=== PATIENT | female | born 1960 | race Caucasian/White ===

== ENCOUNTER → 2020-07-30 08:12 | Outpatient (CLI) | payer BC, SELFPAY ==
[2020-07-30 09:09] LABS: Add Manual Diff / Slide Review NO; Basophils Absolute Auto 0 /uL (0-100); Basophils Percent Auto 0.8 % (0-2); Eosinophils Absolute Auto 100 /uL (0-450); Eosinophils Percent Auto 3.4 % (2-4); Hematocrit 37.9 % (36-46); Hemoglobin 12.9 g/dL (12.0-16.0); Lymphocytes Absolute Auto 1200 /uL (1100-4500); Lymphocytes Percent Auto 32.5 % (25-40); Mean Corpuscular HGB Conc 34.1 % (30-36); Mean Corpuscular Volume 90.8 fL (80-100); Monocytes Absolute Auto 400 /uL (0-900); Monocytes Percent Auto 10.7 % (3-14); Neutrophils Absolute Auto 1900 /uL (1500-7000); Neutrophils Percent Auto 52.6 % (50-75); Platelet Count 163 X10^3/uL (150-400); Red Blood Cell Count 4.18 X10^6/uL (4.0-5.2); Red Cell Distribution Width 13.2 % (11.6-14.8); White Blood Cell Count 3.6 X10^3/uL (4.5-11.0)
[2020-07-30 09:30] LABS: Alanine Aminotransferase 50 IU/L (<35); Albumin 4.4 g/dL (3.5-5.0); Albumin Globulin Ratio 1.8 (1.0-2.8); Alkaline Phosphatase 65 U/L (38-126); Aspartate Aminotransferase 46 IU/L (14-36); BUN Creatinine Ratio 18.2 (6-22); Bilirubin Total 0.9 mg/dL (0.2-1.3); Blood Urea Nitrogen 14 mg/dL (7-17); Calcium 9.2 mg/dL (8.4-10.2); Carbon Dioxide 32 mmol/L (22-32); Chloride 104 mmol/L (98-107); Cholesterol 172 mg/dL (140-199); Estimated Glomerular Filt Rate > 60.0 mL/min (>60); Globulin 2.5 g/dL (1.7-4.1); Glucose 102 mg/dL (80-110); HDL Cholesterol 80 mg/dL (40-60); LDL Cholesterol Calculated 80 mg/dL (<100); Potassium 3.7 mmol/L (3.4-5.1); Sodium 139 mmol/L (137-145); Total Protein 6.9 g/dL (6.3-8.2); Triglycerides 61 mg/dL (35-150)
[2020-07-30 10:27] LABS: Thyroid Stimulating Hormone 3.12 uIU/mL (0.47-4.68)
[2020-07-31 14:23] LABS: Gamma Glutamyl Transpeptidase 37 U/L (12-43); HEMOLYSIS 25 (0-50)
[2020-07-31 14:59] LABS: Ferritin 97 ng/mL (11-264)
[2020-07-31 18:40] LABS: ANA Screen, IFA Positive (.)
[2020-08-01 14:36] LABS: Albumin 4.3 g/dL (2.9-4.4); Alpha-1-Globulin 0.3 g/dL (0.0-0.4); Alpha-2-Globulin 0.6 g/dL (0.4-1.0); Gamma Globulin 0.5 g/dL (0.4-1.8); Globulin Total 2.2 g/dL (2.2-3.9); Immunoglobulin A, Serum 148 mg/dL (87-352); Immunoglobulin G,Serum 510 mg/dL (586-1602); Immunoglobulin M, Serum 81 mg/dL (26-217); Protein, Total 6.5 g/dL (6.0-8.5)
== END ==
PROVIDERS: PCP Internal Medicine; Referring Provider Internal Medicine; Visit Provider Internal Medicine
DX: G62.9 Polyneuropathy, unspecified (principal); E78.5 Hyperlipidemia, unspecified; D72.819 Decreased white blood cell count, unspecified
CPT/HCPCS: 36415; 80053; 80061; 82728; 82784; 82977; 84155; 84165; 84443; 85025; 86038; 86334

== ENCOUNTER → 2020-09-06 13:34 | Outpatient (CLI) | payer BC, SELFPAY | PROVIDERS: PCP Internal Medicine; Referring Provider Internal Medicine; Visit Provider Internal Medicine | DX: G62.9 Polyneuropathy, unspecified (principal) | CPT/HCPCS: 36415; 82175; 83655 ==

== ENCOUNTER → 2020-10-05 12:17 | Outpatient (CLI) | payer BC, SELFPAY ==
--- NOTE | 2020-10-05 | DI.MG.S_ITS ---
BILATERAL DIGITAL SCREENING MAMMOGRAM 3D/2D WITH CAD: 10/05/2020 CLINICAL: Routine screening. Family history of breast cancer. Comparison is made to exams dated: 07/02/2017 mammogram, 08/07/2018 mammogram - outside location, and 09/16/2019 mammogram - [facility]. The tissue of both breasts is heterogeneously dense. This may lower the sensitivity of mammography. Current study was also evaluated with a Computer Aided Detection (CAD) system. No significant masses, calcifications, or other findings are seen in either breast. There has been no significant interval change. IMPRESSION: NEGATIVE There is no mammographic evidence of malignancy. A 1 year screening mammogram is recommended. This exam was interpreted at Station ID: [id number]. NOTE: For mammograms, a report in lay terms will be sent to the patient. Approximately 15% of breast malignancies will not be visualized mammographically. In the management of a palpable breast mass, a negative mammogram must not discourage biopsy of a clinically suspicious lesion. Electronically Signed By: Bhupendra campbell/kusum:10/05/2020 12:49:31 letter sent: Normal Exam ACR BI-RADS Category 1: Negative 3341F
== END ==
PROVIDERS: PCP Internal Medicine; Referring Provider Internal Medicine; Visit Provider Internal Medicine
DX: Z12.31 Encounter for screening mammogram for malignant neoplasm of breast (principal); Z80.3 Family history of malignant neoplasm of breast
CPT/HCPCS: 77063; 77067

== ENCOUNTER → 2020-11-30 12:03 | Outpatient (CLI) | payer BC, SELFPAY ==
[2020-11-30] MEDS: COVID-19 VACC #1, MRNA(MOD) 100 MCG/0.5 ML VIAL IM (12:08)
== END ==
PROVIDERS: PCP Internal Medicine; Visit Provider Internal Medicine
DX: Z23 Encounter for immunization (principal)
CPT/HCPCS: 0011A; 91301

== ENCOUNTER → 2020-12-28 11:59 | Outpatient (CLI) | payer BC, SELFPAY ==
[2020-12-28] MEDS: COVID-19 VACC #2, MRNA(MOD) 100 MCG/0.5 ML VIAL IM (12:10)
== END ==
PROVIDERS: PCP Internal Medicine; Visit Provider Internal Medicine
DX: Z23 Encounter for immunization (principal)
CPT/HCPCS: 0012A; 91301

== ENCOUNTER 2021-03-11 13:22 | Outpatient (RCR) | payer BC, SELFPAY ==
--- NOTE | 2021-03-11 17:38 | PT.OIE ---
Current Diagnoses Benign paroxysmal vertigo, right ear (03/11/21) Benign paroxysmal vertigo, bilateral (03/11/21) Dizziness and giddiness (03/11/21) Visit Care Team Role Provider Type Myrtle Briseno PA-C Attending Provider Non-Staff Family Provider Primary Care Provider Referring Provider Specialty: Internal Medicine Address: [address] [place] [address], [facility] Email: [email or web address] Physical Therapy Initial Evaluation PT-OP-A Visit Information Start: 03/11/21 16:33 Freq: Status: Active Protocol: Document 03/11/21 13:45 DCW (Rec: 03/11/21 16:34 DCW [id number]) Out-Patient Physical Therapy Visit Information Visit Information Visit Type Initial Evaluation Visit Start Time 13:45 Visit Stop Time 14:30 Total Visit Minutes 45 Visit Number 1 Number of LEAD CARE MANAGER Visits 0 Evaluation Information Evaluation Date 03/11/21 PT-OP-B Current Condition Start: 03/11/21 16:33 Freq: Status: Active Protocol: Document 03/11/21 13:45 DCW (Rec: 03/11/21 16:42 DCW [id number]) Current Condition History of Current Condition Onset Date Early December Current Complaints Positional vertigo History of Current Condition Pt is a 60 year old female complaining of a two month history of motion-induced vertigo. Pt reports episodes last a few seconds. Symptoms are provoked by looking up, leaning forward, and lying back in bed. Pt does have a history of BPPV ~3 years ago which responded well to canalith repositioning maneuvers. Pt denies recent hearing changes, tinnitus, diplopia, dysarthria, discoordination, or decreased mentation/consciousness. Pt reports symptoms are waxing/ waning in nature. Pt denies hx of HTN, diabetes, arrhythmia, head trauma, seizure, migraines, back/neck problems, CVA, anxiety/panic disorders, depression, or excessive smoking or drinking. Treatment Goals Patient/Caregiver Goals Eliminate vertigo PT-OP-C Subjective Start: 03/11/21 16:33 Freq: Status: Active Protocol: Document 03/11/21 13:45 DCW (Rec: 03/11/21 16:42 DCW [id number]) OP-PT Subjective Patient Comments Patient Comments It's not as bad as it was last time I had this. Patient Reported Progress Same Patient Questionnaires Dizziness Handicap Inventory DHI Score 24% DHI Functional Impairment 20 to 39% Impaired (Score 20- 39) PT-OP-O Vestibular Start: 03/11/21 16:33 Freq: Status: Active Protocol: Document 03/11/21 13:45 DCW (Rec: 03/11/21 16:42 DCW [id number]) Vestibular Assessment Screening Tests Vestibular Artery Screen Negative Visual Testing Smooth Pursuits Horizontal WNL Smooth Pursuits Vertical WNL Saccades Horizontal WNL Heave Test Negative Thrust Head Negative Positional Testing Madison-Hallpike Positive Right,Negative Left, Upbeating,< 60 Seconds PT-OP-Q Treatments Start: 03/11/21 16:33 Freq: Status: Active Protocol: Document 03/11/21 13:45 DCW (Rec: 03/11/21 16:42 DCW [id number]) Canalithic Repositioning BPPV Treatment Lukasz Affected Canal(s) Posterior R Reps x3 PT-OP-T Assessment and Plan Start: 03/11/21 16:33 Freq: Status: Active Protocol: Document 03/11/21 13:45 DCW (Rec: 03/11/21 17:37 DCW [id number]) Physical Therapy Assessment Rehab Potential Rehabilitation Potential Good Evaluation Complexity Number of Personal Factors/Comorbidities 0 Number of Body Systems Impaired 1-2 Clinical Presentation at Evaluation Unstable Impairments Impairments Balance,Functional Activities, Functional Mobility,Vestibular Goals Three Impairment Positive right Madison-Hallpike test Supply Tech Goal (LTG) Pt to present with negative positional testing bilaterally . LTG Duration 05/12/21 Two Impairment Pt experiences vertigo with positional changes Short Term Goal (STG) Pt to present with no instances of positional vertigo to improve ability to perform bed mobility. STG Duration 04/11/21 One Impairment Pt scores a 25% handicap on the DHI Short Term Goal (STG) Pt to score <15% on the DHI STG Duration 04/11/21 Assessment Summary Assessment During right Madison-Hallpike test , pt complained of vertigo and demonstrated up-beating, torsional nystagmus lasting approximately 15 seconds, consistent with diagnosis of right-sided posterior canal BPPV, canalithiasis-type. Pt was treated with a left/right- sided modified Lukasz maneuver. Pt complained of symptoms in the first and third position, which is normally indicative of a successful treatment. Upon sitting up, pt experienced a reversal, with nystagmus and instability for ~10 seconds. A second Hallpike confirmed continued presence of loose otoconia, and a second modified Lukasz was performed. Once again, pt experienced a reversal upon sitting. Strangely, however, further testing was negative. One possible explanation is that the second reversal was not a true reversal, and was in fact the otoconia returning to the utricle upon sitting. Pt was educated on BPPV, expectations for treatment, possible recurrence (BPPV has a ~50% recurrence rate in the five years following treatment ), and post-Lukasz restrictions . Pt to return in ~1 week for a follow-up appointment, and intermittently afterward as indicated for treatment of BPPV. Physical Therapy Plan Frequency and Duration Frequency of Treatment 1-2 x/wk Duration of Treatment Two months Plan of Care Start Date 03/11/21 Plan of Care End Date 05/12/21 Therapeutic Interventions Therapeutic Interventions Canalithic Repositioning, Neuromuscular Re-education, Patient/Caregiver Education, Self-Care/Home Management, Therapeutic Exercises, Vestibular Rehabilitation Next Visit Focus/Plan Next Note Type Treatment Note Next Visit Plan Positional testing, CRM as indicated
--- NOTE | 2021-03-11 17:38 | PT.OPPOC ---
Physical, Occupational & Speech Therapy At [facility] Current Diagnoses Benign paroxysmal vertigo, right ear (03/11/21) Benign paroxysmal vertigo, bilateral (03/11/21) Dizziness and giddiness (03/11/21) Visit Care Team Role Provider Type Myrtle Briseno PA-C Attending Provider Non-Staff Family Provider Primary Care Provider Referring Provider Specialty: Internal Medicine Address: [address] [place] [address], [id number] Email: [email or web address] Plan Of Care PT-OP-T Assessment and Plan Start: 03/11/21 16:33 Freq: Status: Active Protocol: Document 03/11/21 13:45 DCW (Rec: 03/11/21 17:37 DCW [id number]) Physical Therapy Assessment Rehab Potential Rehabilitation Potential Good Evaluation Complexity Number of Personal Factors/Comorbidities 0 Number of Body Systems Impaired 1-2 Clinical Presentation at Evaluation Unstable Impairments Impairments Balance,Functional Activities, Functional Mobility,Vestibular Goals Three Impairment Positive right Ludmila-Hallpike test Group Home Goal (LTG) Pt to present with negative positional testing bilaterally . LTG Duration 05/12/21 Two Impairment Pt experiences vertigo with positional changes Short Term Goal (STG) Pt to present with no instances of positional vertigo to improve ability to perform bed mobility. STG Duration 04/11/21 One Impairment Pt scores a 25% handicap on the DHI Short Term Goal (STG) Pt to score <15% on the DHI STG Duration 04/11/21 Assessment Summary Assessment During right Ludmila-Hallpike test , pt complained of vertigo and demonstrated up-beating, torsional nystagmus lasting approximately 15 seconds, consistent with diagnosis of right-sided posterior canal BPPV, canalithiasis-type. Pt was treated with a right- sided modified Lukasz maneuver. Pt complained of symptoms in the first and third position, which is normally indicative of a successful treatment. Upon sitting up, pt experienced a reversal, with nystagmus and instability for ~10 seconds. A second Hallpike confirmed continued presence of loose otoconia, and a second modified Lukasz was performed. Once again, pt experienced a reversal upon sitting. Strangely, however, further testing was negative. One possible explanation is that the second reversal was not a true reversal, and was in fact the otoconia returning to the utricle upon sitting. Pt was educated on BPPV, expectations for treatment, possible recurrence (BPPV has a ~50% recurrence rate in the five years following treatment ), and post-Lukasz restrictions . Pt to return in ~1 week for a follow-up appointment, and intermittently afterward as indicated for treatment of BPPV. Physical Therapy Plan Frequency and Duration Frequency of Treatment 1-2 x/wk Duration of Treatment Two months Plan of Care Start Date 03/11/21 Plan of Care End Date 05/12/21 Therapeutic Interventions Therapeutic Interventions Canalithic Repositioning, Neuromuscular Re-education, Patient/Caregiver Education, Self-Care/Home Management, Therapeutic Exercises, Vestibular Rehabilitation Next Visit Focus/Plan Next Note Type Treatment Note Next Visit Plan Positional testing, CRM as indicated Plan of Care Dates Plan of Care Start Date 03/11/21 Plan of Care End Date 05/12/21 Electronically Signed by: Cong Miranda, PT 03/11/21 [id number] Please Sign and Return: I have reviewed this Plan of Care and certify that the skilled therapy services above are required to meet the patient?s needs. Physician Signature Date Printed Name and Credentials Clinical Instructor Signature Printed Name and Credentials
--- NOTE | 2021-03-25 17:52 | PT.OPDS ---
Current Diagnoses Benign paroxysmal vertigo, right ear (03/11/21) Benign paroxysmal vertigo, bilateral (03/11/21) Dizziness and giddiness (03/11/21) Visit Care Team Role Provider Type Myrtle Briseno PA-C Attending Provider Non-Staff Family Provider Primary Care Provider Referring Provider Specialty: Internal Medicine Address: [address] [place] [address], [facility] Email: [email or web address] Visit Number Visit Number 1 Discharge Summary PT-OP-B Current Condition Start: 03/11/21 16:33 Freq: Status: Active Protocol: Document 03/11/21 13:45 DCW (Rec: 03/11/21 16:42 DCW [id number]) Current Condition History of Current Condition Onset Date Early December Current Complaints Positional vertigo History of Current Condition Pt is a 60 year old female complaining of a two month history of motion-induced vertigo. Pt reports episodes last a few seconds. Symptoms are provoked by looking up, leaning forward, and lying back in bed. Pt does have a hisroty of BPPV ~3 years ago which responded well to canalith repositioning maneuvers. Pt denies recent hearing changes, tinnitus, diplopia, dysarthria, discoordination, or decreased mentation/consciousness. Pt reports symptoms are waxing/ waning in nature. Pt denies hx of HTN, diabetes, arrhythmia, head trauma, seizure, migraines, back/neck problems, CVA, anxiety/panic disorders, depression, or excessive smoking or drinking. Treatment Goals Patient/Caregiver Goals Eliminate vertigo PT-OP-C Subjective Start: 03/11/21 16:33 Freq: Status: Active Protocol: Document 03/11/21 13:45 DCW (Rec: 03/11/21 16:42 DCW [id number]) OP-PT Subjective Patient Comments Patient Comments It's not as bad as it was last time I had this. Patient Reported Progress Same Patient Questionnaires Dizziness Handicap Inventory DHI Score 24% DHI Functional Impairment 20 to 39% Impaired (Score 20- 39) PT-OP-O Vestibular Start: 03/11/21 16:33 Freq: Status: Active Protocol: Document 03/11/21 13:45 DCW (Rec: 07/12/21 16:42 DC [id number]) Vestibular Assessment Screening Tests Vestibular Artery Screen Negative Visual Testing Smooth Pursuits Horizontal WNL Smooth Pursuits Vertical WNL Saccades Horizontal WNL Heave Test Negative Thrust Head Negative Positional Testing Ludmila-Hallpike Positive Right,Negative Left, Upbeating,< 60 Seconds PT-OP-T Assessment and Plan Start: 03/11/21 16:33 Freq: Status: Active Protocol: Document 03/25/21 17:50 DCW (Rec: 03/25/21 17:51 DC [id number]) Physical Therapy Assessment Assessment Summary Assessment Pt phoned clinic today to request discharge, reported she no longer needed therapy at this time. Pt will be discharged from skilled PT, will require a new referral in order to return. Physical Therapy Plan Frequency and Duration Frequency of Treatment 1-2 x/wk Duration of Treatment Two months Plan of Care Start Date 03/11/21 Plan of Care End Date 05/12/21 Therapeutic Interventions Therapeutic Interventions Canalithic Repositioning, Neuromuscular Re-education, Patient/Caregiver Education, Self-Care/Home Management, Therapeutic Exercises, Vestibular Rehabilitation Discharge Physical Therapy Discharge Reasons Patient Request Next Visit Focus/Plan Next Note Type Discharge Summary
== END 2021-03-26 10:15 | disposition home or self-care (01) ==
LOC: PHYS 13:22
PROVIDERS: Family Provider Physician Assistant; PCP Physician Assistant; Referring Provider Physician Assistant; Visit Provider Physician Assistant
DX: H81.13 Benign paroxysmal vertigo, bilateral (principal)
CPT/HCPCS: 95992; 97161

== ENCOUNTER → 2021-10-08 15:57 | Outpatient (CLI) | payer BC, SELFPAY ==
--- NOTE | 2021-10-08 | DI.MG.S_ITS ---
BILATERAL DIGITAL SCREENING MAMMOGRAM 3D/2D WITH CAD: 10/08/2021 CLINICAL: Routine screening. Family history of breast cancer. Comparison is made to exams dated: 10/05/2020 mammogram - [facility], 09/16/2019 mammogram - [facility], and 08/07/2018 mammogram - outside location. The tissue of both breasts is heterogeneously dense. This may lower the sensitivity of mammography. Current study was also evaluated with a Computer Aided Detection (CAD) system. No significant masses, calcifications, or other findings are seen in either breast. There has been no significant interval change. IMPRESSION: NEGATIVE There is no mammographic evidence of malignancy. A 1 year screening mammogram is recommended. This exam was interpreted at Station ID: [id number]. NOTE: For mammograms, a report in lay terms will be sent to the patient. Approximately 15% of breast malignancies will not be visualized mammographically. In the management of a palpable breast mass, a negative mammogram must not discourage biopsy of a clinically suspicious lesion. Electronically Signed By: Bhupendra campbell/kusum:10/09/2021 08:08:26 letter sent: Normal Exam ACR BI-RADS Category 1: Negative 3341F
== END ==
PROVIDERS: Family Provider Physician Assistant; PCP Physician Assistant; Referring Provider Physician Assistant; Visit Provider Physician Assistant
DX: Z12.31 Encounter for screening mammogram for malignant neoplasm of breast (principal); Z80.3 Family history of malignant neoplasm of breast
CPT/HCPCS: 77063; 77067

== ENCOUNTER → 2022-07-10 12:07 | Outpatient (CLI) | payer BC, SELFPAY | PROVIDERS: Family Provider Physician Assistant; PCP Physician Assistant; Referring Provider Physician Assistant; Visit Provider Physician Assistant | DX: Z13.820 Encounter for screening for osteoporosis; Z78.0 Asymptomatic menopausal state; Z92.23 Personal history of estrogen therapy | CPT/HCPCS: 77080 ==

== ENCOUNTER → 2022-08-04 15:21 | Outpatient (CLI) | payer BC, SELFPAY ==
[2022-08-05 15:24] LABS: HEMOLYSIS < 15 (0-50); Iron 108 ug/dL (37-170)
[2022-08-05 15:43] LABS: Percent Iron Saturation 40 % (15-50); Total Iron Binding Capacity 267 ug/dL (265-497); Transferrin 231 mg/dL (206-381)
[2022-08-05 16:46] LABS: Ferritin 124 ng/mL (11-264)
[2022-08-05 17:17] LABS: Folate > 20.0 ng/mL (2.76-20.0)
== END ==
PROVIDERS: Family Provider Physician Assistant; PCP Physician Assistant; Referring Provider Physician Assistant; Visit Provider Physician Assistant
DX: R79.89 Other specified abnormal findings of blood chemistry (principal)
CPT/HCPCS: 36415; 82728; 82746; 83540; 83550

== ENCOUNTER → 2023-01-09 15:16 | Outpatient (CLI) | payer BC, SELFPAY ==
--- NOTE | 2023-01-09 | DI.MG.S_ITS ---
BILATERAL DIGITAL SCREENING MAMMOGRAM 3D/2D WITH CAD: 01/09/2023 CLINICAL: Routine screening. Family history of breast cancer. Comparison is made to exams dated: 10/08/2021 mammogram, 10/05/2020 mammogram - [facility], and 09/16/2019 mammogram - [facility]. Both breasts are heterogeneously dense, which may obscure small masses (category c / 51-75% glandular tissue). Current study was also evaluated with a Computer Aided Detection (CAD) system. No significant masses, calcifications, or other findings are seen in either breast. There has been no significant interval change. IMPRESSION: NEGATIVE There is no mammographic evidence of malignancy. A 1 year screening mammogram is recommended. Based on the Tyrer Cuzick model (a risk assessment model) the patient's lifetime risk is 15.4% and her 10 year risk is 6.8%. According to the ACR, ACS, and NCCN guidelines, an annual breast MRI exam along with mammogram is recommended if the patient's lifetime risk is 20% or greater. This exam was interpreted at Station ID: [id number]. NOTE: For mammograms, a report in lay terms will be sent to the patient. Approximately 15% of breast malignancies will not be visualized mammographically. In the management of a palpable breast mass, a negative mammogram must not discourage biopsy of a clinically suspicious lesion. Electronically Signed By: Karen giron/kusum:01/09/2023 16:26:46 letter sent: Normal Exam ACR BI-RADS Category 1: Negative 3341F
== END ==
PROVIDERS: Family Provider Physician Assistant; PCP Physician Assistant; Referring Provider Physician Assistant; Visit Provider Physician Assistant
DX: Z12.31 Encounter for screening mammogram for malignant neoplasm of breast (principal); Z80.3 Family history of malignant neoplasm of breast
CPT/HCPCS: 77063; 77067

== ENCOUNTER → 2024-02-26 14:35 | Outpatient (CLI) | payer BC, SELFPAY ==
--- NOTE | 2024-02-26 14:36 | DI.MG.S_ITS ---
BILATERAL DIGITAL SCREENING MAMMOGRAM 3D/2D WITH CAD: 02/26/2024 CLINICAL: Routine screening. Family history of breast cancer. Comparison is made to exams dated: 01/09/2023 mammogram, 10/08/2021 mammogram, and 10/05/2020 mammogram - [facility]. Both breasts are heterogeneously dense, which may obscure small masses (category c / 51-75% glandular tissue). Current study was also evaluated with a Computer Aided Detection (CAD) system. No significant masses, calcifications, or other findings are seen in either breast. There has been no significant interval change. IMPRESSION: NEGATIVE There is no mammographic evidence of malignancy. A 1 year screening mammogram is recommended. Based on the Tyrer Cuzick model (a risk assessment model) the patient's lifetime risk is 15.0% and her 10 year risk is 6.9%. According to the ACR, ACS, and NCCN guidelines, an annual breast MRI exam along with mammogram is recommended if the patient's lifetime risk is 20% or greater. This exam was interpreted at Station ID: [id number]. NOTE: For mammograms, a report in lay terms will be sent to the patient. Approximately 15% of breast malignancies will not be visualized mammographically. In the management of a palpable breast mass, a negative mammogram must not discourage biopsy of a clinically suspicious lesion. Electronically Signed By: Vaughn patel/kusum:02/26/2024 16:30:45 letter sent: Normal Exam ACR BI-RADS Category 1: Negative 3341F
== END ==
PROVIDERS: Family Provider Physician Assistant; PCP Physician Assistant; Referring Provider Physician Assistant; Visit Provider Physician Assistant
DX: Z12.31 Encounter for screening mammogram for malignant neoplasm of breast (principal); R92.333 Mammographic heterogeneous density, bilateral breasts; Z80.3 Family history of malignant neoplasm of breast
CPT/HCPCS: 77063; 77067

== ENCOUNTER → 2025-03-24 14:27 | Outpatient (CLI) | payer MEDICARE, BC, SELFPAY ==
--- NOTE | 2025-03-24 14:29 | DI.MG.S_ITS ---
MM screening mammo BI: 03/24/2025. BI-RADS: 1 CLINICAL: 65-year old female for bilateral screening mammogram. Tyrer-Cuzick lifetime risk of 10.5%. No personal or first-degree family history of breast cancer. PRIOR EXAMS 02/26/2024, 01/09/2023, 10/08/2021, 10/05/2020. MAMMOGRAPHY TECHNIQUE: 2D and 3D (tomosynthesis) digital mammographic views obtained, with additional images as needed for full coverage. Current study was also evaluated with a Computer Aided Detection (CAD) system. DENSITY C. The breasts are heterogeneously dense, which may obscure small masses. MAMMOGRAPHY FINDINGS Bilateral: No suspicious mass, asymmetry, microcalcification, or other abnormality seen. IMPRESSION: * No evidence of malignancy. RECOMMENDATIONS Bilateral * Annual screening mammography. OVERALL ASSESSMENT CATEGORY BI-RADS-1: Negative. The [employer] recommends annual screening mammography beginning at age 40 for women with average risk of breast cancer. ELECTRONICALLY SIGNED: Ana Shen M.D. on 03/24/2025 at 05:01:02 PM PT Interpreting Station ID: [id number]
== END ==
PROVIDERS: Family Provider Physician Assistant; PCP Physician Assistant; Referring Provider Physician Assistant; Visit Provider Physician Assistant
DX: Z12.31 Encounter for screening mammogram for malignant neoplasm of breast (principal); R92.333 Mammographic heterogeneous density, bilateral breasts
CPT/HCPCS: 77063; 77067

== ENCOUNTER → 2025-07-04 14:09 | Outpatient (CLI) | payer MEDICARE, BC, SELFPAY ==
--- NOTE | 2025-07-04 14:13 | DI.RAD.S_ITS ---
PROCEDURE: ORTHO-XR FOOT 3V WB RIGHT
--- NOTE | 2025-07-04 14:13 | DI.RAD.S_ITS ---
PROCEDURE: ORTHO-XR FOOT 3V WB LEFT
== END ==
PROVIDERS: Family Provider Physician Assistant; PCP Physician Assistant; Referring Provider Physician Assistant; Visit Provider Podiatrist Foot & Ankle Surgery
DX: M20.12 Hallux valgus (acquired), left foot (principal); M20.11 Hallux valgus (acquired), right foot; M21.612 Bunion of left foot; M79.671 Pain in right foot; M79.672 Pain in left foot; M77.32 Calcaneal spur, left foot; M77.31 Calcaneal spur, right foot
CPT/HCPCS: 73630

== ENCOUNTER → 2025-07-14 14:10 | Outpatient (CLI) | payer MEDICARE, BC, SELFPAY ==
--- NOTE | 2025-07-14 14:22 | DI.RAD.S_ITS ---
PROCEDURE: XR CHEST 2V INDICATIONS: Pre Op TECHNIQUE: 2 views of the chest were acquired. COMPARISON: None. FINDINGS: Surgical changes and devices: None. Lungs and pleura: Lungs are clear. No pleural effusions or pneumothorax. Mediastinum: Mediastinal contours are normal. Heart size is normal. Bones and chest wall: S-shaped dextrolevocurvature of the thoracolumbar spine. No suspicious bony abnormalities. Soft tissues appear unremarkable. IMPRESSION: No acute cardiopulmonary abnormality is seen. Dictated by: Xander Gill M.D. on 07/16/2025 at 13:15 Approved by: Xander Gill M.D. on 07/16/2025 at 13:16
== END ==
LOC: RAD 14:17
PROVIDERS: Family Provider Physician Assistant; PCP Physician Assistant; Referring Provider Physician Assistant; Visit Provider Physician Assistant
DX: Z01.818 Encounter for other preprocedural examination (principal)
CPT/HCPCS: 71046

== ENCOUNTER 2025-07-18 14:37 | Emergency (ER) | payer MEDICARE, BC, SELFPAY ==
[2025-07-18] VITALS (25 sets, daily range): BP systolic 102–147; BP diastolic 55–84; PULSE 54–77; RESP 12–88; TEMP 36.6; O2SAT 90–100; BMI 21.9
--- NOTE | 2025-07-18 14:52 | DI.RAD.S_ITS ---
PROCEDURE: XR CHEST 1V INDICATIONS: Chest Pain TECHNIQUE: One view of the chest was acquired. COMPARISON: [facility], CR, XR CHEST 2V, 07/14/2025, 14:19. FINDINGS: Surgical changes and devices: None. Lungs and pleura: Lungs are clear. No pleural effusions or pneumothorax. Mediastinum: Mediastinal contours appear normal. Heart size is normal. Bones and chest wall: No suspicious bony lesions. Overlying soft tissues appear unremarkable. Scoliosis. Prominent nipple shadows. IMPRESSION: No acute cardiopulmonary abnormality is seen. Dictated by: Shmuel Mcdonnell M.D. on 07/18/2025 at 16:36 Approved by: Shmuel Mcdonnell M.D. on 07/18/2025 at 16:37
--- NOTE | 2025-07-18 14:52 | EKG_ITS ---
[place] [address] [address], [place] [address] Test Date: 2025-07-18 Pat Name: Zhane Edward Department: Room: Gender: Female Mines Inspector: QUINN : 1960 Requested By: Order Number: [id number] Reading MD: Ang Husain MD Measurements Intervals [place] Rate: 61 P: 65 NE: 150 QRS: 44 QRSD: 76 T: 47 QT: 394 QTc: 396 Interpretive Statements Normal sinus rhythm Electronically Signed On 07-18-2025 15:46:36 PST by Ang Husain MD
[2025-07-18] MEDS: ASPIRIN 81 MG CHEW TAB 324 MG PO (15:04)
[2025-07-18 15:10] LABS: INR 1.1 (0.9-1.3); Prothrombin Time 12.0 SECONDS (9.4-12.5)
[2025-07-18 15:13] LABS: PTT Partial Thromboplastin Tim 37 SECONDS (25.1-36.5)
[2025-07-18 15:17] LABS: Add Manual Diff / Slide Review NO; Hematocrit 37.8 % (36-46); Hemoglobin 13.3 g/dL (12.0-16.0); Lymphocytes Absolute Auto 700 /uL (1100-4500); Mean Corpuscular HGB Conc 35.3 % (30-36); Mean Corpuscular Hemoglobin 32.3 PG (26-34); Mean Corpuscular Volume 91.3 fL (80-100); Platelet Count 197 X10^3/uL (150-400)
[2025-07-18 15:18] LABS: Alanine Aminotransferase 26 IU/L (<35); Albumin 5.2 g/dL (3.5-5.0); Albumin Globulin Ratio 2.0 (1.0-2.8); Alkaline Phosphatase 71 U/L (38-126); Blood Urea Nitrogen 25 mg/dL (7-17); Calcium 9.7 mg/dL (8.4-10.2); Carbon Dioxide 25 mmol/L (22-32); Chloride 101 mmol/L (98-107); Creatine Kinase 86 U/L (30-135); Estimated Glomerular Filt Rate > 60 mL/min (>60); Globulin 2.6 g/dL (1.7-4.1); Glucose 121 mg/dL (70-99); HEMOLYSIS < 15 (0-50); Lipase 181 U/L (23-300); Magnesium 2.0 mg/dL (1.6-2.3); Potassium 4.2 mmol/L (3.4-5.1); Sodium 138 mmol/L (137-145); Total Protein 7.8 g/dL (6.3-8.2)
[2025-07-18 15:30] LABS: NT-proBNP (BNP-Adult 18+) 70 pg/mL (<125); Troponin I < 0.012 ng/mL (0.01-0.034)
--- NOTE | 2025-07-18 15:37 | ED_ITS ---
HPI - Chest Pain <Erika Wolf DO - Last Filed: 07/18/25 23:18> General Chief Complaint: Chest Pain Stated Complaint: dizzy, sweating, episode this AM, low HR Time Seen by Provider: 07/18/25 14:54 Source: patient, RN notes reviewed and old records reviewed Mode of arrival: Ambulatory Limitations: no limitations Limitations: no limitations Related Data Allergies Allergy/AdvReac Type Severity Reaction Status Date / Time amoxicillin Allergy Unknown Hives Verified 07/18/25 15:13 <Karin Zhou PA-C - Last Filed: 07/18/25 19:58> History of Present Illness HPI narrative: 65-year-old female with past medical history hyperlipidemia presents to the ED with 1 day of chest pain, diaphoresis, lightheadedness. Patient states that she was awoken from sleep at about 7:30 a.m. feeling some chest pain and diaphoretic. She was unable to go back to sleep after that so she awoke. Later on, she noticed that her much registered that she had had low heart rates between 35 and 40 at 7:33 a.m.. Since that time in the morning, patient has not had any symptoms. No fever, chills, shortness of breath, nausea, vomiting, syncope. No known cardiac history. Review of Systems <Karin Zhou PA-C - Last Filed: 07/18/25 19:58> Constitutional Constitutional: Denies chills, Denies fatigue, Denies fever(s), Denies frequent falls, Denies lethargy and Denies weakness Comments: diaphoresis Eyes Eyes: Denies change in vision, Denies eye discharge, Denies irritation and Denies loss of vision ENT Ears, Nose, Mouth, and Throat: Denies change in voice, Denies dizziness, Denies neck pain, Denies sore throat and Denies throat swelling Cardiovascular Cardiovascular: Reports chest pain, Denies irregular heart rhythm, Reports lightheadedness, Denies palpitations, Denies dyspnea, Denies dyspnea on exertion and Denies orthopnea Comments: bradycardia Respiratory Respiratory: Denies cough, Denies dyspnea, Denies dyspnea on exertion and Denies wheezing Gastrointestinal Gastrointestinal: Denies abdominal pain, Denies change in bowel habits, Denies diarrhea, Denies nausea and Denies vomiting Musculoskeletal Musculoskeletal: Denies neck pain and Denies numbness Integumentary/Breasts Skin/Breast: Denies pruritus, Denies erythema, Denies rash and Denies wounds Neurologic Neurologic: Denies behavioral changes, Denies confusion, Denies dizziness, Denies frequent falls, Denies loss of vision, Denies numbness and Denies weakness Psychiatric Psychiatric: Denies anxiety, Denies behavioral changes, Denies confusion, Denies depression, Denies homicidal ideation and Denies suicidal ideation Endocrine Endocrine: Denies fatigue, Denies flushing and Denies palpitations Hematologic/Lymphatic Hematologic/Lymphatic: Denies easy bruising Allergic/Immunologic Allergic/Immunologic: Denies urticaria, Denies throat swelling and Denies wheezing Patient History <Erika Wolf DO - Last Filed: 07/18/25 23:18> Social History Smoking Status: Never smoker Smoking Status: Never smoker Exam <Erika Wolf DO - Last Filed: 07/18/25 23:18> Initial Vital Signs Initial Vital Signs: Vital Signs Pulse Rate 77 07/18/25 14:45 Blood Pressure 131/73 07/18/25 14:45 Pulse Oximetry 100 07/18/25 14:45 <Karin Zhou PA-C - Last Filed: 07/18/25 19:58> Narrative Exam Narrative: Const General:?cooperative, healthy appearing and comfortable [facility] Head:?normal to inspection Ears:?hearing grossly normal bilaterally Nose:?external nose normal Face and sinus:?normal facial exam and sinuses nontender Mouth:?oral mucosae normal Throat:?posterior oropharynx normal Eyes General:?appearance normal, both eyes and all related structures Neck Neck:?normal visual inspection and no lymphadenopathy noted Resp Effort & Inspection:?normal respiratory effort Auscultation:?clear to auscultation bilaterally Cardio Rate:?regular rate Rhythm:?regular rhythm Neuro General:?patient alert, patient awake and patient oriented x3 Initial Vital Signs Initial Vital Signs: Vital Signs Pulse Rate 77 07/18/25 14:45 Blood Pressure 131/73 07/18/25 14:45 Pulse Oximetry 100 07/18/25 14:45 Course <Erika Wolf DO - Last Filed: 07/18/25 23:18> Orders Ordered: ED Orders 07/18/25 14:52 XR chest 1V Stat EKG-12 Lead Stat 07/18/25 14:55 Complete Blood Count AUTO DIFF Stat Comprehensive Metabolic Panel Stat Lipase Stat Magnesium Stat NT-proBNP (BNP-Adult 18+) Stat PTT Partial Thromboplastin Melvin Stat Prothrombin Time INR Stat Troponin & CK Cardiac Panel Stat 07/18/25 18:10 EKG-12 Lead Stat 07/18/25 18:55 Troponin & CK Cardiac Panel Stat Discontinued Medications Aspirin (Aspirin 81 Mg Chew Tab) 324 mg PO NOW ONE Stop: 07/18/25 14:53 Last Admin: 07/18/25 15:04 Dose: 324 mg Documented By: GENTRY Vital Signs Vital signs: Vital Signs - 8 hr 07/18/25 15:30 07/18/25 15:30 07/18/25 15:45 Pulse Rate 62 63 Respiratory Rate 24 20 Blood Pressure 123/66 Pulse Oximetry 99 100 Oxygen Delivery Method 07/18/25 15:45 07/18/25 16:00 07/18/25 16:00 Pulse Rate 61 Respiratory Rate 12 Blood Pressure 135/67 125/65 Pulse Oximetry 100 Oxygen Delivery Method 07/18/25 16:15 07/18/25 16:15 07/18/25 16:30 Pulse Rate 64 61 Respiratory Rate 24 14 Blood Pressure 123/58 L Pulse Oximetry 100 100 Oxygen Delivery Method 07/18/25 16:30 07/18/25 16:45 07/18/25 16:45 Pulse Rate 63 Respiratory Rate 14 Blood Pressure 122/63 114/58 L Pulse Oximetry 100 Oxygen Delivery Method 07/18/25 17:12 07/18/25 17:15 07/18/25 17:15 Pulse Rate 62 58 L Respiratory Rate 88 H 15 Blood Pressure 114/60 Pulse Oximetry 90 L 99 Oxygen Delivery Method 07/18/25 17:30 07/18/25 17:30 07/18/25 17:45 Pulse Rate 61 Respiratory Rate 16 Blood Pressure 116/57 L 109/57 L Pulse Oximetry 100 Oxygen Delivery Method 07/18/25 17:45 07/18/25 18:00 07/18/25 18:00 Pulse Rate 61 61 Respiratory Rate 26 H 23 Blood Pressure 113/60 Pulse Oximetry 100 99 Oxygen Delivery Method 07/18/25 18:15 07/18/25 18:15 07/18/25 18:30 Pulse Rate 61 59 L Respiratory Rate Blood Pressure 116/58 L Pulse Oximetry 98 100 Oxygen Delivery Method 07/18/25 18:31 07/18/25 18:31 07/18/25 18:45 Pulse Rate 60 Respiratory Rate Blood Pressure 129/62 131/76 Pulse Oximetry 98 Oxygen Delivery Method 07/18/25 18:45 07/18/25 19:00 07/18/25 19:00 Pulse Rate 66 58 L Respiratory Rate 20 22 Blood Pressure 119/57 L Pulse Oximetry 99 99 Oxygen Delivery Method Room Air 07/18/25 19:15 07/18/25 19:15 07/18/25 19:30 Pulse Rate 59 L 58 L Respiratory Rate Blood Pressure 111/59 L Pulse Oximetry 98 98 Oxygen Delivery Method 07/18/25 19:30 07/18/25 19:45 07/18/25 19:45 Pulse Rate 58 L Respiratory Rate 23 Blood Pressure 102/55 L 105/56 L Pulse Oximetry 99 Oxygen Delivery Method <Karin Zhou PA-C - Last Filed: 07/18/25 19:58> Orders Ordered: ED Orders 07/18/25 14:52 XR chest 1V Stat EKG-12 Lead Stat 07/18/25 14:55 Complete Blood Count AUTO DIFF Stat Comprehensive Metabolic Panel Stat Lipase Stat Magnesium Stat NT-proBNP (BNP-Adult 18+) Stat PTT Partial Thromboplastin Melvin Stat Prothrombin Time INR Stat Troponin & CK Cardiac Panel Stat 07/18/25 18:10 EKG-12 Lead Stat 07/18/25 18:55 Troponin & CK Cardiac Panel Stat Discontinued Medications Aspirin (Aspirin 81 Mg Chew Tab) 324 mg PO NOW ONE Stop: 07/18/25 14:53 Last Admin: 07/18/25 15:04 Dose: 324 mg Documented By: GENTRY Vital Signs Vital signs: Vital Signs - 8 hr 07/18/25 15:30 07/18/25 15:30 07/18/25 15:45 Pulse Rate 62 63 Respiratory Rate 24 20 Blood Pressure 123/66 Pulse Oximetry 99 100 Oxygen Delivery Method 07/18/25 15:45 07/18/25 16:00 07/18/25 16:00 Pulse Rate 61 Respiratory Rate 12 Blood Pressure 135/67 125/65 Pulse Oximetry 100 Oxygen Delivery Method 07/18/25 16:15 07/18/25 16:15 07/18/25 16:30 Pulse Rate 64 61 Respiratory Rate 24 14 Blood Pressure 123/58 L Pulse Oximetry 100 100 Oxygen Delivery Method 07/18/25 16:30 07/18/25 16:45 07/18/25 16:45 Pulse Rate 63 Respiratory Rate 14 Blood Pressure 122/63 114/58 L Pulse Oximetry 100 Oxygen Delivery Method 07/18/25 17:12 07/18/25 17:15 07/18/25 17:15 Pulse Rate 62 58 L Respiratory Rate 88 H 15 Blood Pressure 114/60 Pulse Oximetry 90 L 99 Oxygen Delivery Method 07/18/25 17:30 07/18/25 17:30 07/18/25 17:45 Pulse Rate 61 Respiratory Rate 16 Blood Pressure 116/57 L 109/57 L Pulse Oximetry 100 Oxygen Delivery Method 07/18/25 17:45 07/18/25 18:00 07/18/25 18:00 Pulse Rate 61 61 Respiratory Rate 26 H 23 Blood Pressure 113/60 Pulse Oximetry 100 99 Oxygen Delivery Method 07/18/25 18:15 07/18/25 18:15 07/18/25 18:30 Pulse Rate 61 59 L Respiratory Rate Blood Pressure 116/58 L Pulse Oximetry 98 100 Oxygen Delivery Method 07/18/25 18:31 07/18/25 18:31 07/18/25 18:45 Pulse Rate 60 Respiratory Rate Blood Pressure 129/62 131/76 Pulse Oximetry 98 Oxygen Delivery Method 07/18/25 18:45 07/18/25 19:00 07/18/25 19:00 Pulse Rate 66 58 L Respiratory Rate 20 22 Blood Pressure 119/57 L Pulse Oximetry 99 99 Oxygen Delivery Method Room Air 07/18/25 19:15 07/18/25 19:15 07/18/25 19:30 Pulse Rate 59 L 58 L Respiratory Rate Blood Pressure 111/59 L Pulse Oximetry 98 98 Oxygen Delivery Method 07/18/25 19:30 07/18/25 19:45 07/18/25 19:45 Pulse Rate 58 L Respiratory Rate 23 Blood Pressure 102/55 L 105/56 L Pulse Oximetry 99 Oxygen Delivery Method MDM - Chest Pain <Erika Wolf, - Last Filed: 07/18/25 23:18> Lab Data 07/18/25 14:55 07/18/25 14:55 Labs: Lab Results 07/18/25 07/18/25 Range/Units 14:55 18:55 WBC 4.6 (4.5-11.0) X10^3/uL RBC 4.14 (4.0-5.2) X10^6/uL Hgb 13.3 (12.0-16.0) g/dL Hct 37.8 (36-46) % MCV 91.3 (80-100) fL MCH 32.3 (26-34) PG MCHC 35.3 (30-36) % RDW 12.6 (11.6-14.8) % Plt Count 197 (150-400) X10^3/uL Neut % (Auto) 75.3 H (50-75) % Lymph % (Auto) 15.7 L (25-40) % [place] % (Auto) 7.6 (3-14) % Eos % (Auto) 0.2 L (2-4) % Baso % (Auto) 1.2 (0-2) % Neut # (Auto) 3400 (5524-1276) /uL Lymph # (Auto) 700 L (2050-8639) /uL [place] # (Auto) 300 (0-900) /uL Eos # (Auto) 0 (0-450) /uL Baso # (Auto) 100 (0-100) /uL PT 12.0 (9.4-12.5) SECONDS INR 1.1 (0.9-1.3) APTT 37 H (25.1-36.5) SECONDS Sodium 138 (137-145) mmol/L Potassium 4.2 (3.4-5.1) mmol/L Chloride 101 (98-107) mmol/L Carbon Dioxide 25 (22-32) mmol/L BUN 25 H (7-17) mg/dL Creatinine 0.83 (0.52-1.04) mg/dL Estimated GFR > 60 (>60) mL/min BUN/Creatinine Ratio 30.1 H (6-22) Glucose 121 H (70-99) mg/dL Calcium 9.7 (8.4-10.2) mg/dL Magnesium 2.0 (1.6-2.3) mg/dL Total Bilirubin 0.7 (0.2-1.3) mg/dL AST 34 (14-36) IU/L ALT 26 (<35) IU/L Alkaline Phosphatase 71 (38-126) U/L Total Creatine Kinase 86 73 (30-135) U/L Troponin I < 0.012 < 0.012 (0.01-0.034) ng/mL NT-Pro-B Natriuret Pep 70 (<125) pg/mL Total Protein 7.8 (6.3-8.2) g/dL Albumin 5.2 H (3.5-5.0) g/dL Globulin 2.6 (1.7-4.1) g/dL Albumin/Globulin Ratio 2.0 (1.0-2.8) Lipase 181 (23-300) U/L [facility] Narrative Medical decision making narrative: Labs show normal white count, hemoglobin and platelets, predominance of neutrophils, INR is 1.1, BUN is 25 creatinine 0.83 electrolytes are otherwise appropriate glucose is 121 LFTs are normal, troponins less than 0.012 with a BNP of 70. Lipase is 181. Chest x-ray shows no acute cardiopulmonary abnormality seen as shaped dextro levocurvature of the thoracolumbar spine no suspicious bony abnormality soft tissues appear unremarkable. EKG, sinus rhythm rate of 61 NC 150 QRS is 76 QTC of [address]-elevation or depression. Patient received aspirin <Karin Zhou PA-C - Last Filed: 07/18/25 19:58> Lab Data Labs: Lab Results 07/18/25 07/18/25 Range/Units 14:55 18:55 WBC 4.6 (4.5-11.0) X10^3/uL RBC 4.14 (4.0-5.2) X10^6/uL Hgb 13.3 (12.0-16.0) g/dL Hct 37.8 (36-46) % MCV 91.3 (80-100) fL MCH 32.3 (26-34) PG MCHC 35.3 (30-36) % RDW 12.6 (11.6-14.8) % Plt Count 197 (150-400) X10^3/uL Neut % (Auto) 75.3 H (50-75) % Lymph % (Auto) 15.7 L (25-40) % [place] % (Auto) 7.6 (3-14) % Eos % (Auto) 0.2 L (2-4) % Baso % (Auto) 1.2 (0-2) % Neut # (Auto) 3400 (7564-2808) /uL Lymph # (Auto) 700 L (9042-7309) /uL [place] # (Auto) 300 (0-900) /uL Eos # (Auto) 0 (0-450) /uL Baso # (Auto) 100 (0-100) /uL PT 12.0 (9.4-12.5) SECONDS INR 1.1 (0.9-1.3) APTT 37 H (25.1-36.5) SECONDS Sodium 138 (137-145) mmol/L Potassium 4.2 (3.4-5.1) mmol/L Chloride 101 (98-107) mmol/L Carbon Dioxide 25 (22-32) mmol/L BUN 25 H (7-17) mg/dL Creatinine 0.83 (0.52-1.04) mg/dL Estimated GFR > 60 (>60) mL/min BUN/Creatinine Ratio 30.1 H (6-22) Glucose 121 H (70-99) mg/dL Calcium 9.7 (8.4-10.2) mg/dL Magnesium 2.0 (1.6-2.3) mg/dL Total Bilirubin 0.7 (0.2-1.3) mg/dL AST 34 (14-36) IU/L ALT 26 (<35) IU/L Alkaline Phosphatase 71 (38-126) U/L Total Creatine Kinase 86 73 (30-135) U/L Troponin I < 0.012 < 0.012 (0.01-0.034) ng/mL NT-Pro-B Natriuret Pep 70 (<125) pg/mL Total Protein 7.8 (6.3-8.2) g/dL Albumin 5.2 H (3.5-5.0) g/dL Globulin 2.6 (1.7-4.1) g/dL Albumin/Globulin Ratio 2.0 (1.0-2.8) Lipase 181 (23-300) U/L [facility] Narrative Medical decision making narrative: 65-year-old female with past medical history hyperlipidemia presents to the ED with 1 day of chest pain, diaphoresis, lightheadedness. Cardiopulmonary workup was obtained. Labs show normal white count, hemoglobin and platelets, predominance of neutrophils, INR is 1.1, BUN is 25 creatinine 0.83 electrolytes are otherwise appropriate glucose is 121 LFTs are normal, troponins less than 0.012 with a BNP of 70. Lipase is 181. Chest x-ray shows no acute cardiopulmonary abnormality seen as shaped dextro levocurvature of the thoracolumbar spine no suspicious bony abnormality soft tissues appear unremarkable. EKG, sinus rhythm rate of 61 NC 150 QRS is 76 QTC of [address]-elevation or depression. Patient received aspirin Patient continued to stay stable without symptoms in the ED. repeat EKG was performed with a ventricular rate of 55 beats per minute, sinus bradycardia. NC interval of 130, QRS 80 milliseconds, QTC of 409. No acute ST-T changes. Will repeat troponin, reassess. Repeat troponin within normal limits. Counseled patient on possible reasons for bradycardia, chest pain. Recommend getting evaluated by her PCP for sleep apnea and thyroid issues etc. recommend follow-up with cardiology for further evaluation. ED return precautions discussed with patient. Patient verbalized understanding. Medical records reviewed: Yes Discharge Plan Departure Patient Disposition: Home Clinical Impression: Chest pain Qualifiers: Chest pain type: unspecified Qualified Code(s): R07.9 - Chest pain, unspecified Instructions: DI for Chest Pain Activity Restrictions/Additional Instructions: You were evaluated in the emergency department today for chest pain, low heart rate. Your chest x-ray, EKG and labs were normal. The repeat EKG and troponin were also normal. While it is unclear the reason why you experienced the chest pain and low heart rate this morning, it is important for you to follow-up with cardiology for further investigation. Common causes of a low heart rate could be sleep apnea, heart blocks, new medications, thyroid issues. It is therefore important for you to follow-up with both cardiology and your primary care doctor for further investigations. In the meanwhile, if your symptoms worsen please return to the ED. Referrals: Rocio Mckeon PA-C [Primary Care Provider, Medical] Stand Alone Forms: Patient Portal/API ED Sign-out <Erika Wolf DO - Last Filed: 07/18/25 23:18> Cosign ED Attending Cosignature Attestation: When level
--- NOTE | 2025-07-18 18:10 | EKG_ITS ---
[facility] [address] [address] Test Date: 2025-07-18 Pat Name: Zhane Edward Department: [facility] Room: Gender: Female Production Administrator: boris : 1960 Requested By: Order Number: [id number] Reading MD: Ang Husain MD Measurements Intervals [place] Rate: 55 P: 33 TN: 130 QRS: 42 QRSD: 80 T: 45 QT: 428 QTc: 409 Interpretive Statements Sinus bradycardia Low voltage QRS Electronically Signed On 07-19-2025 7:30:23 PST by Ang Husain MD
--- NOTE | 2025-07-18 18:46 | PC.NURSE ---
This RN unable to draw off patient's line for repeat troponin. Lab made aware and will come to draw patient.
[2025-07-18 19:23] LABS: Creatine Kinase 73 U/L (30-135)
[2025-07-18 19:36] LABS: Troponin I < 0.012 ng/mL (0.01-0.034)
== END 2025-07-18 20:00 | disposition home or self-care (01) ==
PROVIDERS: Emergency Medicine; Emergency Provider Student in an Organized Health Care Education/Training Program; Family Provider Physician Assistant; PCP Physician Assistant
DX: R07.9 Chest pain, unspecified (principal); R61 Generalized hyperhidrosis; R42 Dizziness and giddiness; R00.1 Bradycardia, unspecified
CPT/HCPCS: 36415; 71045; 80053; 82550; 83690; 83735; 83880; 84484; 85025; 85610; 85730; 93005; 93010; 99284